=== PATIENT | male | born 1970 | race Caucasian/White ===

== ENCOUNTER 2024-07-16 10:45 | Emergency (ER) | payer SELFPAY ==
[2024-07-16 10:55] VITALS: BP 157/105
[2024-07-16 11:25] LABS: Urine Albumin Negative (Neg - Trace); Urine Bilirubin Negative (Negative); Urine Character Clear (Clear); Urine Color Yellow; Urine Glucose Negative (Negative); Urine Ketone Negative (Negative); Urine Leukocyte Negative (Negative); Urine Nitrite Negative (Negative); Urine Occult Blood Negative (Negative); Urine Urobilinogen Negative (Neg - 1+)
[2024-07-16 11:28] LABS: % Basophils 0.3 % (0-2); % Eosinophils 0.8 % (0-6); % Immature Granulocytes 0.4 % (0-0.5); % Lymphocytes 12.2 % (20.5-51.1); % Monocytes 5.7 % (1.7-9.3); % Neutrophils 80.6 % (42.2-75.2); Absolute Eosinophils 0.1 10^3/uL (0-0.7); Absolute Immature Granulocytes 0.1 10^3/uL (0-0.05); Absolute Lymphocytes 1.4 10^3/uL (1.2-3.4); Absolute Monocytes 0.7 10^3/uL (0.1-0.6); Absolute Neutrophils 9.2 10^3/uL (1.4-6.5); Hematocrit 38.3 % (39.0-52.0); Hemoglobin 13.3 g/dL (13.0-18.0); Mean Corp Hgb Conc. 34.7 g/dL (33.0-37.0); Mean Corpuscular Volume 83.4 fL (80.0-94.0); Mean Platelet Volume 8.8 fL (7.4-10.4); Nucleated Red Blood Cells % 0 % (-); Platelet Count 264 10^3/uL (130-400); Red Blood Cell Count 4.59 10^6/uL (4.70-6.10); Red Cell Dist. Width 12.5 % (11.5-14.5); White Blood Cell Count 11.4 10^3/uL (4.8-10.8)
[2024-07-16 11:36] LABS: Amphetamines Negative (Negative); Barbiturates Negative (Negative); Benzodiazepines Negative (Negative); Buprenorphine Negative (Negative); Cocaine Negative (Negative); Marijuana Negative (Negative); Methadone Negative (Negative); Methamphetamines Negative (Negative); Opiates Negative (Negative); Phencyclidine Negative (Negative); Tricyclic Antidepressants Negative (Negative)
[2024-07-16 11:52] LABS: ALT (SGPT) 21 U/L (0-50); AST (SGOT) 25 U/L (17-59); Albumin 4.3 g/dl (3.5-5.0); Alkaline Phosphatase 54 U/L (38-126); Blood Urea Nitrogen 11 mg/dl (9-20); Calcium 9.4 mg/dl (8.4-10.2); Carbon Dioxide 25 mmol/L (22-30); Chloride 105 mmol/L (98-107); Glucose 120 mg/dl (70-99); Potassium 4.3 mmol/L (3.5-5.1); Sodium 140 mmol/L (135-145); Total Bilirubin 0.3 mg/dl (0.2-1.3); Total Protein 6.8 g/dl (6.3-8.2); eGFR > 60.00
[2024-07-16 11:53] LABS: Alcohol None Detected
--- NOTE | 2024-07-16 13:33 | ED.GENMED ---
History of Present Illness
General
Chief Complaint: Crisis Evaluation
Source: patient and records
Time Seen by Provider: 07/16/24 10:47
History of Present Illness
History of Present Illness:
54-year-old male brought in as a potential 302. Patient apparently was punching the snell with a hammer and screws. History of schizophrenia. This history is not from the patient however. He has no specific complaints. Next thing he knows the
police were there. He was tased by police. He does state he has an unknown roommate who lives in his house that he owns. Complaining of some abrasions to his wrist where he was handcuffed at a small wound where the taser was placed.
Past History
Past History
ED Past Medical History: Psychiatric (Schizophrenia)
Review of Systems
Review of Systems
All Other Systems: Not applicable
Respiratory: Reports no symptoms
Cardiac: Reports no symptoms
ABD/GI: Reports no symptoms
Phy Exam
Physical Exam
Physical Exam:
GENERAL: Alert and oriented in no apparent distress
EYE: Orbits normal.
NECK: Supple, nontender.
ENT: Pharynx without erythema
CARDIAC: Regular rate and rhythm without any obvious murmurs.
LUNGS: Clear breath sounds,normal
ABDOMEN: Soft, without focal tenderness or distention
NEUROLOGICAL: Alert and oriented , grossly non-focal
SKIN: Warm and dry, small puncture wound to the anterior lower midsternal area. Mild abrasions of both wrists
MUSCULOSKELETAL: Minimal tenderness at both wrist. No bony tenderness. No deformity. Good distal pulses and color.
PSYCH: Normal and appropriate interaction.
Course
Orders/Labs/Results
Orders:
Orders
07/16/24 10:45
One to One Observation - Suicide/Violent [1:1 Observation - Suicide/ Violent Behavior] As Directed
07/16/24 10:53
Crisis Consult Urgent
Reason for Consult: 302 eval
07/16/24 10:54
PSYCHIATRY CONSULT Urgent
Consulting Provider: Nandini Reddy
Was physician already notified: Yes
Reason for consult: 302 eval
07/16/24 11:11
Alcohol Urgent
Complete Blood Count/With Diff Urgent
Comprehensive Metabolic Panel Urgent
Urinalysis Reflex To Culture Urgent
Date Specimen was Collected: 07/16/24
Time Specimen was Collected: 10:55
Urine Drug Abuse Screen Urgent
Date Specimen was Collected: 07/16/24
Time Specimen was Collected: 10:55
Abnormal Lab Results
07/16/24
11:11
WBC 11.4 H 10^3/uL
(4.8-10.8)
RBC 4.59 L 10^6/uL
(4.70-6.10)
Hct 38.3 L %
(39.0-52.0)
Abs Immat Gran (auto) 0.1 H 10^3/uL
(0-0.05)
Absolute Neuts (auto) 9.2 H 10^3/uL
(1.4-6.5)
Absolute Monos (auto) 0.7 H 10^3/uL
(0.1-0.6)
Neutrophils % 80.6 H %
(42.2-75.2)
Lymphocytes % 12.2 L %
(20.5-51.1)
Glucose 120 H mg/dl
(70-99)
07/16/24 11:11
07/16/24 11:11
Vital Signs
Initial and Last Documented VS:
Initial Vital Signs
Temp Pulse Resp BP Pulse Ox
98.0 F 98 19 157/105 98
07/16/24 10:55 07/16/24 10:55 07/16/24 10:55 07/16/24 10:55 07/16/24 10:55
Last Documented Vital Signs
Temp Pulse Resp BP Pulse Ox
98.0 F 98 20 157/105 98
07/16/24 10:55 07/16/24 10:55 07/16/24 11:55 07/16/24 10:55 07/16/24 10:55
MDM/Problems Addressed
Differential Diagnosis Includes:
Patient is not adding history to the equation. Apparently was out of control at home. Unsure who called for the police. May have been a family member. Medically stable. Awaiting crisis and psychiatry evaluation
*Pulse Oximetry
Patient hypoxic: no
*Critical Care Note
Total Time (30-74mins, 75-104mins- exclusive of procedures): Not Applicable
Update Note
Update Note:
Medically stable. 302 was upheld.
ED Attending Note
-
Portions of this chart may have been created with voice recognition software.� Occasional wrong word or��sound alike� substitutions may have occurred due to the inherent limitations of voice recognition software.
Discharge Plan
Departure
Patient Disposition: Psych Facility
Date of Disposition: 07/16/24
Time of Disposition: 15:15
Discharge Problem:
Psychiatric committal, Danger to self and others, History of schizophrenia
Interventions
Interventions:
*Risk Screen - Suicide Last Done: 07/16/24 10:55
*General Assessment Last Done: 07/16/24 10:55
*Neglect/Abuse Screening Last Done: 07/16/24 10:55
*ED COVID-19 Vaccine History Last Done: 07/16/24 10:55
ED-Psychological Assessment Last Done: 07/16/24 10:55
Discharge Date and Time
Print Language: THAI
--- NOTE | 2024-07-16 17:20 | CON.MD ---
Consultation - Medical
-
54 yr old M presenting on a 302 petitioned by police (& co-petitioned by his ). As per 302, pt has been exhibiting increasingly more bizarre and aggressive behavior & family feeling increasingly more unsafe at home with him. As per police 302
statement, they did witness the allegations as well - upon entering the home they heard loud banging from bedroom, attempted to verbally engage the pt but were unable to. Pt was breaking snell with a hammer, sounded agitated and was difficult to
redirect. Patient ultimately was tased by the police as behavior was escalating. Police also noted that room appeared to have been significantly damaged. Has been yelling and threatening at other times as well, while wielding things like hammer and
breaking things. As per 302, has threatened to kill his mother as well.
To note, pts also reported hx of meth abuse, however unclear whether this is current or in the past - however, UDS is negative here.
Attempted to interview pt however he was quite guarded - is laying in his room with lights off, seemingly staring into empty space. Has been doing this since getting to ED. When interview was first started, he reported that his mood is 'great!
everything is really good!'. Attempted to clarify this given that he is in the hospital on a 302 but pt was not open to this - although affect was constricted, he was visibly getting upset and irritable when questioned. Pt continued repeating that
'everything's good'. Attempted to discuss 302 allegations and his family's concerns - pt reported that all the damage in the room was done by someone else. Said that he did see this person and heard others talking about this person. Does not know
who this is but believes they have nefarious intentions. Following this interview was terminated early by pt.
Pt can also be seen to have multiple abrasions on his hands, which he attributes to getting tased by the police earlier - abrasions appear more consistent with that obtained when hitting things with a closed fist however.
Unspecified psychosis
MSE: calm, not cooperative, guarded,speech is minimal,mood is 'great!', affect is irritable & constricted, unable to assess thought process due to minimal responses, thought content: describes paranoia and AVH, denies SI/HI but as per 302 has been
threatening to kill family members. Alert & oriented. Memory not formally tested. Insight poor. Judgement poor
302 upheld
Bed search ongoing
Zydis 5mg HS + 5mg PO Q1H PRN acute agitation with 5mg IM for PO refusal
[2024-07-16 17:44] VITALS: BP 148/101
== END 2024-07-16 21:19 ==
LOC: EMR 10:45
PROVIDERS: CONSULT PHYSICIAN Psychiatry & Neurology Psychiatry; EMERGENCY PHYSICIAN Emergency Medicine
DX: Z13.30 Encounter for screening examination for mental health and behavioral disorders, unspecified (principal); F20.9 Schizophrenia, unspecified; S60.812A Abrasion of left wrist, initial encounter; S60.811A Abrasion of right wrist, initial encounter; X58.XXXA Exposure to other specified factors, initial encounter
CPT/HCPCS: 99285; 80053; 80306; 81003; 82077; 85025